=== PATIENT | female | born 1965 | race Caucasian/White ===

== ENCOUNTER 2021-06-29 16:29 | Inpatient (IN) | payer SELFPAY ==
[~2021-06-29] VITALS: Ht 144.8 cm; Wt 111.6 kg
[2021-06-29 20:46] LABS: BASOPHILS % 0.5 % (0.0-2.0); EOSINOPHILS % 4.6 % (0.0-5.0); HEMATOCRIT. 36.6 % (36.0-48.0); HEMOGLOBIN. 11.8 g/dL (12.0-16.0); LYMPHOCYTES % 29.2 % (20.0-50.0); MEAN CORPUSCULAR HEMOGLOBIN 24.5 pg (28.0-32.0); MEAN CORPUSCULAR VOLUME 75.8 fL (81.0-99.0); MEAN PLATELET VOLUME 7.9 fl (7.4-10.4); MONOCYTES % 7.7 % (2.0-8.0); PLATELET 214 x1000/uL (130-400); RED BLOOD CELL COUNT 4.83 mill/uL (4.2-5.4); RED CELL DISTRIBUTION WIDTH 15.2 % (11.6-14.6)
[2021-06-29 20:54] LABS: CHLORIDE 110 mEq/L (98-107)
[2021-06-30] MEDS ORDERED: NITROGLYCERIN OINT 1GM/INCH UDPKT TD ONE (00:15)
[2021-06-30] MEDS ORDERED: SODIUM CHLORIDE 0.9% 1,000 ML IV ONE (00:15)
[2021-06-30] MEDS ORDERED: ASPIRIN 81MG TABLET PO ONE (00:15)
[2021-06-30] MEDS ORDERED: PIPERACILLIN/TAZ 3.375G PREMIX 50 ML IV ONE (04:00)
[2021-06-30 06:00] VITALS: BP 159/71
[2021-06-30] MEDS ORDERED: ACETAMINOPHEN 325MG TABLET PO PRN ×4 (07:15→07:30)
[2021-06-30] MEDS ORDERED: NITROGLYCERIN 0.4MG TABLET SL SL PRN ×2 (07:15→07:30)
[2021-06-30] MEDS ORDERED: ENOXAPARIN 40MG/0.4ML SYR SUBCUT SCH ×2 (07:15→07:30)
[2021-06-30] MEDS ORDERED: MAGNESIUM/ALUMINUM HYDROXIDE/SIMETHICONE 30ML UDC PO PRN ×2 (07:15→07:30)
[2021-06-30] MEDS ORDERED: ZOLPIDEM TARTRATE 5MG TABLET PO PRN ×2 (07:15→21:00)
[2021-06-30] MEDS ORDERED: KETOROLAC 15MG/ML VIAL IV PRN ×2 (07:15→07:30)
[2021-06-30] MEDS ORDERED: DOCUSATE SODIUM 100MG CAPSULE PO PRN ×2 (07:15→07:30)
[2021-06-30] MEDS ORDERED: IPRATROPIUM/ALBUTEROL 0.5-3(2.5)MG/3ML NEB NEB PRN ×2 (07:15→07:30)
[2021-06-30] MEDS ORDERED: GUAIFENESIN 200MG/10ML SUGAR FREE UDC PO PRN ×2 (07:15→07:30)
[2021-06-30] MEDS ORDERED: ONDANSETRON HCL 4MG/2ML INJ IV PRN ×2 (07:15→07:30)
[2021-06-30] MEDS ORDERED: CLONIDINE 0.1MG TABLET PO PRN ×2 (07:15→07:30)
[2021-06-30] MEDS ORDERED: PIPERACILLIN/TAZ 3.375G PREMIX 50 ML IV SCH ×2 (07:15→07:30)
[2021-06-30] MEDS ORDERED: DEXT 5%/0.45% NACL 1000ML 1,000 ML IV SCH (07:15)
[2021-06-30 08:00] VITALS: BP 119/48
[2021-06-30] MEDS ORDERED: PANTOPRAZOLE SODIUM 40 MG/VIAL IV SCH (09:00)
[2021-06-30] MEDS ORDERED: METOPROLOL TARTRATE 25MG TABLET PO SCH (09:00)
[2021-06-30 09:17] LABS: *AMPHETAMINES SCREEN URINE NEGATIVE (NEGATIVE); *BARBITURATES SCREEN URINE NEGATIVE (NEGATIVE)
[2021-06-30 09:18] LABS: *BENZODIAZEPINES SCREEN URINE NEGATIVE (NEGATIVE); *COCAINE SCREEN URINE NEGATIVE (NEGATIVE); CANNABINOID URINE SCREEN NEGATIVE (NEGATIVE); METHADONE URINE SCREEN NEGATIVE (NEGATIVE); OPIATES URINE SCREEN NEGATIVE (NEGATIVE); PHENCYCLIDINE URINE SCREEN NEGATIVE (NEGATIVE)
[2021-06-30] MEDS: METOPROLOL TARTRATE 25MG TABLET PO SCH ×2 (10:03→21:31)
[2021-06-30] MEDS: PANTOPRAZOLE SODIUM 40 MG/VIAL IV SCH (10:04)
[2021-06-30] MEDS: ENOXAPARIN 30MG/0.3ML SYR SUBCUT SCH ×2 (10:08→21:31)
[2021-06-30 11:30] LABS: FOLIC ACID (FOLATE) SERUM >20 ng/mL ng/mL (>5.38)
[2021-06-30 11:42] LABS: VITAMIN B12 SERUM 1027 pg/mL (211-911)
[2021-06-30 11:44] VITALS: BP 135/55
[2021-06-30] MEDS: DEXT 5%/0.45% NACL 1000ML 1,000 ML IV SCH ×2 (12:44→19:00)
[2021-06-30] MEDS: PIPERACILLIN/TAZOBACTAM 3.375 G in DEXTROSE 5% WATER 50 ML IV SCH ×2 (13:18→21:32)
[2021-06-30] MEDS ORDERED: *PATIENT'S OWN MEDICATION STORAGE XX SCH (14:15)
[2021-06-30 15:57] VITALS: BP 124/54
[2021-06-30 17:00] LABS: CREATINE KINASE 139 IU/L (26-192)
[2021-06-30 17:01] LABS: CREATINE KINASE MB FRACTION 2.6 ng/mL (0.5-3.6)
[2021-06-30 20:00] VITALS: BP 140/55
[2021-06-30 23:52] VITALS: BP 134/61
[2021-07-01 00:34] LABS: CREATINE KINASE 124 IU/L (26-192)
[2021-07-01 00:36] LABS: CREATINE KINASE MB FRACTION 2.1 ng/mL (0.5-3.6)
[2021-07-01 04:00] VITALS: BP 110/77
[2021-07-01] MEDS: DEXT 5%/0.45% NACL 1000ML 1,000 ML IV SCH ×2 (05:00→13:43)
[2021-07-01] MEDS: PIPERACILLIN/TAZOBACTAM 3.375 G in DEXTROSE 5% WATER 50 ML IV SCH ×3 (05:20→21:31)
[2021-07-01 08:00] VITALS: BP 152/56
[2021-07-01 08:04] LABS: BASOPHILS % 0.4 % (0.0-2.0); EOSINOPHILS % 5.7 % (0.0-5.0); HEMATOCRIT. 33.3 % (36.0-48.0); HEMOGLOBIN. 10.8 g/dL (12.0-16.0); LYMPHOCYTES % 24.8 % (20.0-50.0); MEAN CORPUSCULAR HEMOGLOBIN 24.4 pg (28.0-32.0); MEAN CORPUSCULAR VOLUME 75.5 fL (81.0-99.0); MEAN PLATELET VOLUME 7.7 fl (7.4-10.4); MONOCYTES % 6.8 % (2.0-8.0); NEUTROPHILS % 62.3 % (40.0-76.0); PLATELET 193 x1000/uL (130-400); RED BLOOD CELL COUNT 4.42 mill/uL (4.2-5.4); RED CELL DISTRIBUTION WIDTH 15.3 % (11.6-14.6)
[2021-07-01 08:21] LABS: CHLORIDE 113 mEq/L (98-107)
[2021-07-01 08:27] LABS: PHOSPHORUS 3.8 mg/dL (2.5-4.9)
[2021-07-01] MEDS: PANTOPRAZOLE SODIUM 40 MG/VIAL IV SCH (09:02)
[2021-07-01] MEDS: ENOXAPARIN 30MG/0.3ML SYR SUBCUT SCH ×2 (09:03→21:30)
[2021-07-01] MEDS: METOPROLOL TARTRATE 25MG TABLET PO SCH ×2 (09:03→21:30)
[2021-07-01 12:00] VITALS: BP 124/70
[2021-07-01 16:00] VITALS: BP 130/64
[2021-07-01 20:00] VITALS: BP 138/52
[2021-07-02] VITALS: BP 130/40
[2021-07-02] MEDS: DEXT 5%/0.45% NACL 1000ML 1,000 ML IV SCH ×2 (01:00→11:00)
[2021-07-02 04:00] VITALS: BP 120/46
[2021-07-02] MEDS: PIPERACILLIN/TAZOBACTAM 3.375 G in DEXTROSE 5% WATER 50 ML IV SCH (05:21)
[2021-07-02 08:00] VITALS: BP 166/58
[2021-07-02] MEDS: ENOXAPARIN 30MG/0.3ML SYR SUBCUT SCH (08:39)
[2021-07-02] MEDS: METOPROLOL TARTRATE 25MG TABLET PO SCH (08:39)
[2021-07-02] MEDS: PANTOPRAZOLE SODIUM 40 MG/VIAL IV SCH (08:39)
[2021-07-02 11:47] VITALS: BP 166/58
[2021-07-02 12:00] VITALS: BP 147/71
== END 2021-07-02 15:27 | disposition home or self-care (01) ==
LOC: ER 16:29 → 6WST 06-30 03:06 → EDBEDREQTM 06-30 03:14 → EDBEDREQ 06-30 03:14 → ENRESERV 06-30 04:51 → ER 06-30 05:18
PROVIDERS: ADMIT Internal Medicine; ATTEND Internal Medicine
DX: K80.00 Calculus of gallbladder with acute cholecystitis without obstruction (principal); Z68.43 Body mass index [BMI] 50.0-59.9, adult; D64.9 Anemia, unspecified; R74.01 Elevation of levels of liver transaminase levels; J45.909 Unspecified asthma, uncomplicated; I10 Essential (primary) hypertension; E66.01 Morbid (severe) obesity due to excess calories; R07.89 Other chest pain; Z20.820 Contact with and (suspected) exposure to varicella
CPT/HCPCS: 36415; 71045; 74176; 76700; 80053; 80061; 80305; 82550; 82553; 82607; 82746; 83036; 83540; 83550; 83735; 83880; 84100; 84443; 84484; 85025; 87426; 93005; 93306; 93970; 99291; C9113; J1650; J2543; J7030; J7060